=== PATIENT | female | born 1980 | race Caucasian/White ===

== ENCOUNTER → 2020-09-14 13:24 | Outpatient (BNVA) | payer MEDICAID, SELFPAY | PROVIDERS: PCP Nurse Practitioner Family; Visit Provider Internal Medicine | DX: M25.50 Pain in unspecified joint (principal); Z11.59 Encounter for screening for other viral diseases; R76.8 Other specified abnormal immunological findings in serum; M54.5 Low back pain; D86.9 Sarcoidosis, unspecified; L40.9 Psoriasis, unspecified | CPT/HCPCS: 99204 ==

== ENCOUNTER 2020-09-14 14:56 | Outpatient (CLI) | payer MEDICAID, SELFPAY ==
--- NOTE | 2020-09-14 15:04 | XRR_ITS ---
PROCEDURE INFORMATION: Exam: XR Bilateral Sacroiliac Joints, 3 or More Views Exam date and time: 09/14/2020 3:08 PM Age: 40 years old Clinical indication: Condition or disease; Other: L40.9 - psoriasis, unspecified TECHNIQUE: Imaging protocol: XR Bilateral XR of the sacroiliac joints, 3 or more views. COMPARISON: No relevant prior studies available. FINDINGS: Bones/joints: Normal. No acute fracture. Soft tissues: Normal. XR/XR sacroiliac [facility] [id number] IMPRESSION: No acute findings.
--- NOTE | 2020-09-14 15:04 | XRR_ITS ---
PROCEDURE INFORMATION: Exam: XR Right Hand Exam date and time: 09/14/2020 3:08 PM Age: 40 years old Clinical indication: Condition or disease; Other: L40.9 - psoriasis, unspecified; Additional info: R76.8 - other specified abnormal immunological findings in serum TECHNIQUE: Imaging protocol: XR Right hand. Views: 1 or 2 views. COMPARISON: No relevant prior studies available. FINDINGS: Bones/joints: Negative for acute bony abnormality Soft tissues: Normal. XR/XR hand RT 2V [id number] IMPRESSION: No acute findings.
--- NOTE | 2020-09-14 15:04 | XRR_ITS ---
PROCEDURE INFORMATION: Exam: XR Lumbosacral Spine, 2 or 3 Views Exam date and time: 09/14/2020 3:08 PM Age: 40 years old Clinical indication: Abnormal findings; Abnormal lab test; R76.8 - other specified abnormal immunological findings in serum TECHNIQUE: Imaging protocol: XR of the lumbosacral spine, 2 or 3 views. COMPARISON: No relevant prior studies available. FINDINGS: Bones/joints: Normal. No acute fracture. Normal alignment. Soft tissues: Unremarkable. XR/XR lumbar spine 2-3V* [id number] IMPRESSION: No acute findings.
--- NOTE | 2020-09-14 15:04 | XRR_ITS ---
PROCEDURE INFORMATION: Exam: XR Left Hand Exam date and time: 09/14/2020 3:08 PM Age: 40 years old Clinical indication: Abnormal findings; Abnormal lab test; Other: R76.8 - other specified abnormal immunological findings in serum TECHNIQUE: Imaging protocol: XR Left hand. Views: 3 or more views. COMPARISON: No relevant prior studies available. FINDINGS: Bones/joints: Negative for acute bony abnormality. Soft tissues: Normal. XR/XR hand LT 2V [id number] IMPRESSION: No acute findings.
== END 2020-09-14 14:57 | disposition home or self-care (01) ==
PROVIDERS: PCP Nurse Practitioner Family; Visit Provider Internal Medicine
DX: L40.9 Psoriasis, unspecified (principal); R76.8 Other specified abnormal immunological findings in serum; D86.9 Sarcoidosis, unspecified; Z51.81 Encounter for therapeutic drug level monitoring
CPT/HCPCS: 36415; 72100; 72202; 73120; 81001; 82306; 82550; 82728; 83540; 83735; 84100; 85651; 86140; 86431; 86704; 86803; 86812; 87340